=== PATIENT | male | born 1960 | race Caucasian/White ===

== ENCOUNTER → 2017-10-12 | Outpatient (REF) ==
[~2017-10-12] MED LIST: ASPIRIN 32325 MG/TAB PO; DESYREL 50MG50 MG PO; ELIQUIS 5MG PO; EXCEDRIN1 TAB PO; FELDENE20 MG PO; FISH OIL500 MG PO; IMITREX50 MG PO; KLONOPIN WAFER0.5 MG PO; LASIX 20MG TABL20 MG PO; LOPRESSOR 225 MG/TAB PO; MINIPRESS2 MG PO; MULTIPLE VITAMI1 CAP PO; NEURONTIN300 MG/CAP PO; PRINZIDE 12.5 M1 TA1 PO; TAMBOCOR50 MG PO; ULTRAM 50MG TAB50 MG PO; ZANTAC 150MG T150 MG PO; ZOLOFT 100MG100 MG PO
== END ==
LOC: ZLAB.WCH 17:49
DX: Z01.89 Encounter for other specified special examinations (principal)

== ENCOUNTER 2017-11-16 08:43 | Day surgery (SDC) | payer MEDICAID ==
[~2017-11-16] VITALS: Ht 185.6 cm; Wt 90.2 kg
[2017-11-16] VITALS (7 sets, daily range): BP systolic 103–160; BP diastolic 47–88; PULSE 61–69; TEMP 98–98.9
[2017-11-16] MEDS ORDERED: NEURONTIN300 MG/CAP PO (09:29)
[2017-11-16] MEDS ORDERED: VESICARE10 MG PO (09:29)
[2017-11-16] MEDS ORDERED: PERCOCET 325 MG1 TA2 PO (09:29)
[2017-11-16] MEDS ORDERED: PLAVIX 75MG TAB75 MG PO (09:30)
[2017-11-16] MEDS ORDERED: K-TAB10 PO (09:30)
[2017-11-16 09:31] LABS: HEMATOCRIT 36.4 % (42.0-52.0); HEMOGLOBIN 12.6 g/dl (13.5-18.0); MEAN CELL VOLUME 88 fl (80.0-100.0); MEAN CORPUSCULAR HEMOGLOBIN 30 pg (27.0-31.0); MEAN CORPUSCULAR HGB CONC 35 g/dl (33.0-37.0); MEAN PLATELET VOLUME 11.9 fl (7.4-10.4); PLATELET COUNT 164 K/mm3 (130-400); RED BLOOD COUNT 4.16 M/mm3 (4.20-5.60)
[2017-11-16] MEDS ORDERED: GLUCOTROL10 MG PO (09:31)
[2017-11-16] MEDS ORDERED: LIPITOR 40MG TA40 MG PO (09:31)
[2017-11-16] MEDS ORDERED: PROTONIX 40MG T40 MG PO (09:32)
[2017-11-16 09:35] LABS: INR 1.1 (0.8-3.0); PROTHROMBIN TIME 12.8 SECONDS (9.7-12.8)
[2017-11-16 09:38] LABS: CALCIUM 9.2 mg/dL (8.4-10.2); CREATININE, serum 0.78 mg/dL (0.66-1.25); POTASSIUM 3.7 mmol/L (3.4-5.0)
[2017-11-17 03:10] VITALS: BP 118/74; PULSE 65; TEMP 98.6
[2017-11-17 07:24] VITALS: BP 112/51; PULSE 61; TEMP 98
[2017-11-17] MEDS ORDERED: CLEOCIN HCL300 MG PO (09:53)
[2017-11-17] MEDS ORDERED: TAMBOCOR 1100 MG/TAB PO (09:57)
== END 2017-11-17 12:21 | disposition home or self-care (01) ==
LOC: COL.CAR 08:43 → MEDICAL 12:19 → COL.CAR 11-17 08:40
PROVIDERS: Internal Medicine Cardiovascular Disease
DX: I49.5 Sick sinus syndrome (principal); I47.1 Supraventricular tachycardia; I48.0 Paroxysmal atrial fibrillation; I25.10 Atherosclerotic heart disease of native coronary artery without angina pectoris; I10 Essential (primary) hypertension; F31.9 Bipolar disorder, unspecified; G89.29 Other chronic pain; M79.7 Fibromyalgia; K21.9 Gastro-esophageal reflux disease without esophagitis; G47.00 Insomnia, unspecified; G43.909 Migraine, unspecified, not intractable, without status migrainosus; E11.40 Type 2 diabetes mellitus with diabetic neuropathy, unspecified; F43.10 Post-traumatic stress disorder, unspecified; Z88.0 Allergy status to penicillin; Z88.5 Allergy status to narcotic agent; Z79.02 Long term (current) use of antithrombotics/antiplatelets; Z79.01 Long term (current) use of anticoagulants; Z79.84 Long term (current) use of oral hypoglycemic drugs; Z87.891 Personal history of nicotine dependence; Z82.61 Family history of arthritis; Z82.49 Family history of ischemic heart disease and other diseases of the circulatory system; Z82.3 Family history of stroke; Z83.3 Family history of diabetes mellitus
CPT/HCPCS: OP; C1785; C1898; J1200; J2250; J3010; J3370; J7050